=== PATIENT | male | born 1990 | race Caucasian/White ===

== ENCOUNTER 2017-01-28 07:48 | Emergency (ER) | payer OTHER ==
[2017-01-28 08:09] VITALS: BP 147/87; PULSE 80; RESP 16; TEMP 97.9; O2SAT 96
--- NOTE | 2017-01-28 08:47 | UCPHY ---
H & P Time Seen by Provider: 01/28/17 07:57 Patient Type: New HPI/ROS: CHIEF COMPLAINT: Finger laceration HISTORY OF PRESENT ILLNESS: 26-year-old male lacerated his left index finger while at work today. 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 Bleeding well controlled. No numbness or tingling in the finger. Otherwise well. REVIEW OF SYSTEMS: As per HPI. PAST MEDICAL HISTORY: Denies. Tetanus up-to-date. SOCIAL HISTORY: Nonsmoker. GENERAL APPEARANCE: No distress. Alert. Conversant.. FOCUSED EXAM OF left hand: 1 cm laceration over the radial aspect, left index finger, just distal to the PIP joint. Brisk bleeding. Full range of motion at the PIP and DIP. Normal two-point sensation distally. Brisk capillary refill. Neurovascular exam: Good capillary refill, normal motor exam, normal neurologic exam. Smoking Status: Current some day smoker Constitutional: Initial Vital Signs Temperature (C) 36.6 C 01/28/17 07:58 Heart Rate 80 01/28/17 07:58 Respiratory Rate 16 01/28/17 07:58 Blood Pressure 147/87 H 01/28/17 07:58 O2 Sat (%) 96 01/28/17 07:58 O2 Delivery Mode Room Air Allergies/Adverse Reactions: No Known Allergies Allergy (Unverified 01/28/17 08:10) Home Medications: Medication Instructions Recorded NK [No Known Home Meds] 01/28/17 Medical Decision Making Procedures: Procedure: Laceration repair. The 1 cm laceration on the left index finger was anesthetized using digital block with bupivacaine without epinephrine. The wound was cleaned and irrigated per nursing and tech documentation. Laceration was then draped and explored. There were no deep structures involved. No tendon injury your joint injury identified. The wound was repaired with simple interrupted 5-0 sutures.. The wound repair was simple. The procedure was performed by myself. Patient is aware the laceration will have a scar. Differential Diagnosis: Differential diagnosis for the patient's injury was considered including but not limited to contusion, abrasion, laceration, fracture, open fracture, or dislocation. Departure - Departure Disposition: Home, Routine, Self-Care Clinical Impression: Laceration of index finger of left hand without complication Qualifiers: Encounter type: initial encounter Qualified Code(s): S61.211A - Laceration without foreign body of left index finger without damage to nail, initial encounter Condition: Good Instructions: Finger Laceration (ED) Additional Instructions: Keep wound clean and dry. Clean suture line with a mixture of hydrogen peroxide and water. Apply a thin layer of antibiotic cream. Dress wound if desired. Suture removal in 8-10 days. Watch for signs of infection. No soaking wound in water. Showers are ok. No swimming until sutures are removed. Use Tylenol or ibuprofen as directed for severe pain. Return to Urgent Care if any concerns regarding infection. Referrals: NONE *PRIMARY CARE P,. [Primary Care Provider] - As per Instructions Stand Alone Forms: Work Limited Duty - PQRS PQRS Measurement: Not applicable
== END 2017-01-28 09:05 | disposition home or self-care (01) ==
LOC: CED 07:48
PROC: 0HQGXZZ Repair Left Hand Skin, External Approach (ICD-10-PCS; principal; 2017-01-28)
DX: S61.211A Laceration without foreign body of left index finger without damage to nail, initial encounter (principal); W26.9XXA Contact with unspecified sharp object(s), initial encounter; Y92.512 Supermarket, store or market as the place of occurrence of the external cause; Y93.G1 Activity, food preparation and clean up
CPT/HCPCS: 12001-PO; 99202-PO; G0463-PO